=== PATIENT | female | born 1965 | race Caucasian/White ===

== ENCOUNTER 2022-09-11 16:20 | Outpatient (CLI) | payer BC, SELFPAY | END 2022-09-11 16:21 | disposition home or self-care (01) | LOC: KYNREF 16:24 | PROVIDERS: PCP Nurse Practitioner Family; Visit Provider Nurse Practitioner Family | DX: R79.89 Other specified abnormal findings of blood chemistry (principal); Z13.1 Encounter for screening for diabetes mellitus | CPT/HCPCS: 84443 ==

== ENCOUNTER 2023-10-04 08:30 | Outpatient (CLI) | payer BC, SELFPAY ==
--- NOTE | 2023-10-04 08:45 | CRLHL7_ITS ---
For Patients: As a result of the Cures Act, medical imaging exams and procedure reports are released immediately into your electronic medical record. You may view this report before your referring provider. If you have questions, please contact your health care provider. DIGITAL DIAGNOSTIC BILATERAL MAMMOGRAM USING TOMOSYNTHESIS AND COMPUTER-AIDED DETECTION RIGHT BREAST ULTRASOUND CLINICAL HISTORY: RIGHT breast skin rash. COMPARISON: None. TECHNIQUE: Digital BILATERAL mammogram in four projections with computer-aided detection. Tomosynthesis was used in this interpretation. Real-time ultrasound imaging of RIGHT breast with imaging documentation. BREAST COMPOSITION: The breasts are almost entirely fatty. FINDINGS: 3D CC/MLO BILATERAL mammogram images submitted. No suspicious masses or architectural distortion. No adenopathy or suspicious calcifications. Targeted RIGHT ultrasound performed over the skin rash, 2 o`clock 5 cm from the nipple. Normal breast tissue is present. No fibrocystic change or mass. No skin thickening. IMPRESSION: No suspicious findings are present. The skin rash does not appear concerning. No evidence of malignancy. RECOMMENDATIONS: Clinical follow-up and routine annual screening mammography. Results and recommendations discussed with the patient. BI-RADS Category 2: Benign A lay language report of this examination will be provided to the patient. Dictated by Parker Wiseman MD @ 10/04/2023 9:46:40 AM jj/Dictated by: Parker Wiseman MD @ 10/04/2023 9:46:00 AM (Electronically Signed)
--- NOTE | 2023-10-04 09:15 | CRLHL7_ITS ---
For Patients: As a result of the Cures Act, medical imaging exams and procedure reports are released immediately into your electronic medical record. You may view this report before your referring provider. If you have questions, please contact your health care provider. PLEASE SEE DIGITAL DIAGNOSTIC BILATERAL MAMMOGRAM PERFORMED SAME DAY CRL:may roque/Dictated by: Parker Wiseman MD @ 10/04/2023 9:46:00 AM (Electronically Signed)
== END 2023-10-04 08:31 | disposition home or self-care (01) ==
LOC: MAMMO 08:30
PROVIDERS: PCP Nurse Practitioner Family; Visit Provider Nurse Practitioner Family
DX: R21 Rash and other nonspecific skin eruption (principal)
CPT/HCPCS: 76642; 77066; G0279

== ENCOUNTER 2024-09-29 08:28 | Outpatient (CLI) | payer BC, SELFPAY ==
[2024-10-01 05:31] LABS: HPV Source Vaginal
[2024-10-01 15:29] LABS: Pap Test Digital Imaging Done
== END 2024-09-29 08:29 | disposition home or self-care (01) ==
PROVIDERS: PCP Nurse Practitioner Family; Visit Provider Nurse Practitioner Family
DX: Z01.419 Encounter for gynecological examination (general) (routine) without abnormal findings (principal); M79.672 Pain in left foot; Z13.228 Encounter for screening for other metabolic disorders; Z13.6 Encounter for screening for cardiovascular disorders
CPT/HCPCS: 80053; 80061; 85025; 87624; 87625; 88141; 88142; 88175

== ENCOUNTER 2024-10-08 11:16 | Outpatient (CLI) | payer BC, SELFPAY ==
--- NOTE | 2024-10-08 12:26 | P.ANES_ITS ---
Anesthesia Charges Start Date/Time Anesthesia Start Date: 10/08/24 Anesthesia Start Time: 12:25 Stop Date/Time Anesthesia Stop Date: 10/08/24 Anesthesia Stop Time: 13:00 Coding CPT Codes CPT Codes: ANEGuy LWR INTST SCR COLSC - 07621 ([id number]) P2 - PATIENT W/MILD SYST DISEASE, QK - LIVESTOCK JUDGING COACH 2-4 CNCRNT ANES PROC, QX - ELECTRICAL ENGINEER SVC W/ MD MED DIRECTION
--- NOTE | 2024-10-08 12:26 | W.ANESCHARGE ---
Anesthesia Charges Start Date/Time Anesthesia Start Date: 10/08/24 Anesthesia Start Time: 12:25 Stop Date/Time Anesthesia Stop Date: 10/08/24 Anesthesia Stop Time: 13:00 Coding CPT Codes CPT Codes: ANEGuy LWR INTST SCR COLSC - 06431 ([id number]) P2 - PATIENT W/MILD SYST DISEASE, QK - SHRIMP BOAT CAPTAIN 2-4 CNCRNT ANES PROC, QX - TOUR ESCORT SVC W/ MD MED DIRECTION
--- NOTE | 2024-10-08 13:00 | P.ANES_ITS ---
Anesthesia Charges Start Date/Time Anesthesia Start Date: 10/08/24 Anesthesia Start Time: 12:25 Stop Date/Time Anesthesia Stop Date: 10/08/24 Anesthesia Stop Time: 13:00 Coding CPT Codes CPT Codes: CLAIR LWR INTST SCR COLSC - 49607 ([id number]) P2 - PATIENT W/MILD SYST DISEASE, QK - LAP GRINDER 2-4 CNCRNT ANES PROC
--- NOTE | 2024-10-08 13:00 | W.ANESCHARGE ---
Anesthesia Charges Start Date/Time Anesthesia Start Date: 10/08/24 Anesthesia Start Time: 12:25 Stop Date/Time Anesthesia Stop Date: 10/08/24 Anesthesia Stop Time: 13:00 Coding CPT Codes CPT Codes: CLAIR LWR INTST SCR COLSC - 72616 ([id number]) P2 - PATIENT W/MILD SYST DISEASE, QK - REGISTERED PHLEBOTOMIST PART TIME 2-4 CNCRNT ANES PROC
== END 2024-10-08 11:17 | disposition home or self-care (01) ==
LOC: OP CLINIC 11:17
PROVIDERS: PCP Nurse Practitioner Family; Visit Provider Surgery
DX: Z12.11 Encounter for screening for malignant neoplasm of colon (principal); Z86.0100 Personal history of colon polyps, unspecified; D12.5 Benign neoplasm of sigmoid colon
CPT/HCPCS: 00812; 45385; 88305; J2704